=== PATIENT | female | born 2005 | race Caucasian/White ===

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

== ENCOUNTER 2023-02-21 17:46 | Emergency (ER) | payer MEDICAID ==
[~2023-02-21] VITALS: Ht 162.6 cm; Wt 84.8 kg
[~2023-02-21 17:46] MED LIST: AMOX-1230 PO; IBUP-2213 PO; PSEU120T23 PO; ROB PO
[2023-02-21 18:23] VITALS: BP 121/63; PULSE 62; RESP 20; TEMP 97.5; O2SAT 99
[2023-02-21] MEDS ORDERED: BACITRACIN OINT 500 UNITS/GM PKT TP ONE (18:45)
[2023-02-21] MEDS ORDERED: DOXY-690 PO (18:46)
== END 2023-02-21 19:29 | disposition home or self-care (01) ==
LOC: MED 17:46
DX: S61.401D Unspecified open wound of right hand, subsequent encounter (principal); Z51.81 Encounter for therapeutic drug level monitoring; Z79.899 Other long term (current) drug therapy; X58.XXXD Exposure to other specified factors, subsequent encounter
CPT/HCPCS: 99282; 99283

== ENCOUNTER 2023-05-15 22:27 | Emergency (ER) | payer MEDICAID ==
[~2023-05-15] VITALS: Ht 162.6 cm; Wt 77.1 kg
[~2023-05-15 22:27] MED LIST changes: +DOXY-690 PO
[2023-05-15 22:49] VITALS: BP 134/80; PULSE 70; RESP 16; TEMP 97.4; O2SAT 98
[2023-05-16 00:13] VITALS: O2SAT 98
[2023-05-16 00:45] LABS: APPEARANCE,URINE CLEAR (CLEAR); BILIRUBIN,URINE NEGATIVE (NEGATIVE); BLOOD, URINE NEGATIVE (NEGATIVE); COLOR,URINE YELLOW (YELLOW); LEUKOCYTE ESTERASE ,URINE NEGATIVE (NEGATIVE); NITRITE, URINE NEGATIVE (NEGATIVE); PROTEIN,URINE NEGATIVE (NEGATIVE); UGLUCOSE NEGATIVE (NEGATIVE); UROBILINOGEN,URINE 0.2 EU/dL (0.2 - 1)
[2023-05-16] MEDS ORDERED: ALUMINUM HYD/MAG/SIMETHICONE 30 ML UDC PO ONE (00:55)
[2023-05-16] MEDS ORDERED: FAMO-92 PO (01:12)
[2023-05-16] MEDS ORDERED: CALC355O5 PO (01:12)
== END 2023-05-16 01:22 | disposition home or self-care (01) ==
LOC: MED 22:27
DX: K29.70 Gastritis, unspecified, without bleeding (principal); F17.200 Nicotine dependence, unspecified, uncomplicated; F12.90 Cannabis use, unspecified, uncomplicated; Z79.899 Other long term (current) drug therapy; Z79.1 Long term (current) use of non-steroidal anti-inflammatories (NSAID); Z79.2 Long term (current) use of antibiotics
CPT/HCPCS: 81003; 81025; 99283

== ENCOUNTER 2024-01-17 17:55 | Emergency (ER) | payer MEDICAID ==
[~2024-01-17] VITALS: Ht 162.6 cm; Wt 85.7 kg
[~2024-01-17 17:55] MED LIST changes: +CALC355O5 PO; +FAMO-92 PO
[2024-01-17 18:27] VITALS: BP 122/55; PULSE 105; RESP 20; TEMP 98.3; O2SAT 98
[2024-01-17] MEDS: ONDANSETRON 4 MG ODT PO ONE (18:51)
[2024-01-17] MEDS: FAMOTIDINE 20 MG TAB PO ONE (19:26)
[2024-01-17] MEDS ORDERED: FAMO-90 PO (19:29)
[2024-01-17] MEDS ORDERED: ONDA-188 SL (19:29)
== END 2024-01-17 19:34 | disposition home or self-care (01) ==
LOC: MED 17:55
DX: A08.4 Viral intestinal infection, unspecified (principal); Z79.899 Other long term (current) drug therapy
CPT/HCPCS: 81025; 99283; Q0162